=== PATIENT | female | born 2000 | race American Indian/Alaskan Native ===

== ENCOUNTER 2019-09-13 20:20 | Emergency (ER) | payer SELFPAY ==
[2019-09-13 22:03] VITALS: BP 115/71
--- NOTE | 2019-09-13 22:06 | Emergency Department Report ---
Minor Respiratory - HPI Chief Complaint: Dyspnea/Respdistress Stated Complaint: DIFFICULTY BREATHING Time Seen by Provider: 09/13/19 22:01 ED Review of Systems ROS: Stated complaint: DIFFICULTY BREATHING Other details as noted in HPI Comment: All other systems reviewed and negative ED Past Medical Hx - Past Medical History Previous Medical History?: No - Surgical History Past Surgical History?: No - Social History Smoking Status: Never Smoker Substance Use Type: None Minor Respiratory Exam - Exam General: Vital signs noted. No distress. Alert and acting appropriately. Neurologic: Alert and oriented, no deficits. Musculoskeletal: Unremarkable. ED Course Vital Signs 09/13/19 20:26 Temperature 97.9 F Pulse Rate 110 H Respiratory 18 Rate Blood Pressure 115/71 O2 Sat by Pulse 100 Oximetry Critical care attestation.: If time is entered above; I have spent that time in minutes in the direct care of this critically ill patient, excluding procedure time. ED Disposition Disposition: MED SCREENING EXAM-LEFT Condition: Stable Instructions: Chest Pain (ED), Costochondritis (ED), Anxiety (ED) Referrals: [facility] [Provider Group] - 3-5 Days [facility], [LAB/CONTRACT] - 3-5 Days
== END 2019-09-13 22:30 | disposition left against medical advice (07) ==
LOC: ED 20:20
DX: R06.00 Dyspnea, unspecified (principal)
CPT/HCPCS: 99281

== ENCOUNTER 2019-11-04 15:13 | Emergency (ER) | payer SELFPAY ==
[2019-11-04 15:21] VITALS: BP 133/78
--- NOTE | 2019-11-04 15:49 | XRay Report ---
CHEST 2 VIEWS INDICATION / CLINICAL INFORMATION: SOB; pt c/o shortness of breath x 1 year. Pt states it started when she came from [place] one year ag o. Pt denies cough and fever. Patient states it hurts when she takes a deep breath. COMPARISON: None available. FINDINGS: SUPPORT DEVICES: None. HEART / MEDIASTINUM: The heart size and pulmonary vasculature are normal. LUNGS / PLEURA: No significant pulmonary or pleural abnormality. No pneumothorax. ADDITIONAL FINDINGS: No significant additional findings. IMPRESSION: No acute findings. Signer Name: Derrell David MD Signed: 11/04/2019 3:44 PM Workstation Name: [id number]
--- NOTE | 2019-11-04 17:24 | Emergency Department Report ---
Chief Complaint: Dyspnea/Respdistress Stated Complaint: JOCELIN/CHEST PAIN Time Seen by Provider: 11/04/19 17:13 - HPI History of Present Illness: Patient is a 18-year-old female who presents emergency room with complaints of difficulty breathing for 2 years. She states that she moved here from [place] a year ago. She states that they wanted to do a chest x-ray but she just did not have time to follow-up and she ended up moving to the [facility]. She has no cough, no chest pain no fever no nausea vomiting diarrhea no leg swelling. No recent travel, no recent surgery, no hormone use. No past medical history. No allergies to medications. Patient is a non-smoker. Vitals are normal On exam: Non toxic appearing, no acute distress atraumatic, normocephalic normal appearance of the eyes, PERRL, EOMI, no periorbital edema or ecchymosis moist mucus membranes, normal oropharynx regular heart rate and rhythm, no gallops, no rubs, no murmurs breath sounds are clear bilaterally, no w/r/r, no respiratory distress, no accessory muscle use, no stridor A&O x4, no focal neuro deficit skin is warm, dry, intact Chest x-ray with no acute process No clinical signs or symptoms of pneumonia PERC criteria negative for PE She is presenting with chronic difficulty in breathing Breath sounds are completely clear on exam with good air movement Patient is presenting with a nonmedical emergency at this time Medical screening examination performed and there is no threat to life or limb at this time Patient will be referred to a primary care physician and a university services program associate. Discussed strict return precautions with patient - Exam Vital Signs: Vital Signs 11/04/19 15:17 Temperature 98.1 F Pulse Rate 97 H Respiratory 18 Rate Blood Pressure 133/78 O2 Sat by Pulse 100 Oximetry MSE screening note: Focused history and physical exam performed. ED Disposition for MSE Clinical Impression: Difficulty breathing Disposition: Z-07 MED SCREENING EXAM-LEFT Is pt being admited?: No Does the pt Need Aspirin: No Condition: Stable Instructions: Dyspnea (ED) Additional Instructions: Please follow-up with a primary care doctor. Please follow-up with a university services program associate. Return to emergency room for any new or worsening symptoms. Referrals: RAMIRO GONSALES MD [Staff Physician] - 3-5 Days [facility] [Provider Group] - 3-5 Days [facility] [Outside] - 3-5 Days [facility] [Outside] - 3-5 Days MATT PAVON MD [Staff Physician] - 3-5 Days ASMITA GRANADOS MD [Staff Physician] - 3-5 Days Time of Disposition: 17:22 Print Language: MAORI
== END 2019-11-04 17:29 | disposition left against medical advice (07) ==
LOC: ED 15:13
DX: R06.00 Dyspnea, unspecified (principal)
CPT/HCPCS: 71046